=== PATIENT | male | born 1945 ===

== ENCOUNTER 2017-03-24 11:25 | Day surgery (SDC) | payer MEDICARE, OTHER ==
[2017-03-24 11:46] VITALS: BMI 29.0
[2017-03-24] MEDS ORDERED: Propofol 10 mg/ml Inj (20 ML) ONE (12:27)
[2017-03-24] MEDS ORDERED: Lidocaine Hydrochloride 5 ML INJ ONE (12:27)
[2017-03-24] MEDS ORDERED: Bacitracin 500 Units/gm Oint Foilpak UD ONE (12:33)
[2017-03-24 14:41] VITALS: TEMP 97.8
[2017-03-24 15:06] VITALS: BP 139/84; PULSE 60; RESP 13; O2SAT 99
== END 2017-03-24 14:30 | disposition home or self-care (01) ==
LOC: C.ENDO 11:25
PROVIDERS: ATTEND Internal Medicine
DX: K94.23 Gastrostomy malfunction (principal); I69.391 Dysphagia following cerebral infarction; I69.320 Aphasia following cerebral infarction; R13.10 Dysphagia, unspecified; I10 Essential (primary) hypertension; E11.9 Type 2 diabetes mellitus without complications
CPT/HCPCS: 43246; J2704

== ENCOUNTER 2017-07-28 05:06 | Day surgery (SDC) | payer MEDICARE ==
[2017-07-28] MEDS ORDERED: Propofol 10 mg/ml Inj (20 ML) ONE (07:50)
[2017-07-28] MEDS ORDERED: Midazolam 2 MG/2 ML VIAL ONE (07:50)
[2017-07-28 09:55] VITALS: BP 168/96; PULSE 74; RESP 20; TEMP 97.1; O2SAT 97
== END 2017-07-28 11:00 ==
LOC: C.ENDO 05:06
PROVIDERS: ATTEND Internal Medicine
DX: R13.10 Dysphagia, unspecified (principal); K62.5 Hemorrhage of anus and rectum; Z93.1 Gastrostomy status; I63.9 Cerebral infarction, unspecified; D12.4 Benign neoplasm of descending colon; D12.5 Benign neoplasm of sigmoid colon; K62.6 Ulcer of anus and rectum
CPT/HCPCS: 45380; 82948; 88305; J2704